=== PATIENT | male | born 1950 | race Caucasian/White ===

== ENCOUNTER 2020-07-31 03:52 | Inpatient (IN) | payer MEDICARE, OTHER ==
[~2020-07-31 03:52] MED LIST: 3IN1 COMMODE; AMIODARONE HCL200 MG PO; ANTIVERT25 MG PO; ASPIRIN CHEWABL81 MG PO; BENADRYL25 MG PO; COREG25 MG PO; COUMADIN2.5 MG PO; DICYCLOMINE 10M10 MG PO; GLUCOPHAGE1000 MG PO; GLUCOTROL10 MG PO; ISOSORBIDE MON120 MG PO; LANTUS **100 UNITS/ SC; LASIX40 MG PO; LEVAQUIN500 MG PO; LIPITOR80 MG PO; METRONIDAZOLE500 MG PO; PRILOSEC20 MG PO; RANEXA500 MG PO; SYNTHROID75 MCG PO; VICODIN 10/3251 EACH PO; WARFARIN SODIUM5 MG PO; ZESTRIL40 MG PO
[2020-07-31 04:37] LABS: BASOPHIL 0.1 % (0-2); HCT 28.3 % (42.0-52.0); HGB 7.7 g/dl (13.2-18.0); LYMPHOCYTE 18.5 % (15-48); MCH 19.4 pg (25.0-31.0); MCHC 27.2 g/dL (32.0-36.0); MCV 71.5 fL (78.0-100.0); MONOCYTE 8.1 % (0-12); MPV 9.3 fL (6.0-9.5); NEUTROPHIL 70.7 % (41-80); NRBC 0.3; PLT 275 K/uL (150-400); RBC 3.96 M/uL (4.70-6.00); RDW 18.5 % (11.5-14.0); WBC 10.8 K/uL (4.0-10.5)
[2020-07-31 04:41] LABS: INR 1.6 (0.9-1.2); PROTHROMBIN TIME 18.1 SECONDS (11.4-13.6)
[2020-07-31 04:42] LABS: PTT 35.3 SECONDS (22.2-34.7)
[2020-07-31 04:49] LABS: ALBUMIN 3.6 g/dL (3.4-5.0); BILIRUBIN - TOTAL 0.4 mg/dL (0.2-1.0); CREATININE 1.35 mg/dL (0.67-1.17); GLOBULIN (CALCULATION) 3.7 g/dL; TOTAL PROTEIN 7.3 g/dL (6.4-8.2)
[2020-07-31 04:52] LABS: POTASSIUM 5.2 mmol/L (3.5-5.1)
[2020-07-31 05:41] LABS: IRON % SATURATION 5.9 %SAT (20-50)
[2020-07-31 05:43] LABS: RETICULOCYTE COUNT 3.1 % (1.0-2.0)
[2020-07-31] MEDS ORDERED: ALOGLIPTIN25 MG PO (12:32)
[2020-07-31] MEDS ORDERED: ASPIRIN EC81 MG PO (12:33)
[2020-07-31] MEDS ORDERED: AMIODARONE HCL200 MG PO (12:33)
[2020-07-31] MEDS ORDERED: LIPITOR40 MG PO (12:33)
[2020-07-31] MEDS ORDERED: CARVEDILOL 25MG25 MG PO (12:34)
[2020-07-31] MEDS ORDERED: BENTYL10 MG PO (12:34)
[2020-07-31] MEDS ORDERED: JARDIANCE25 MG PO (12:35)
[2020-07-31] MEDS ORDERED: LASIX40 MG PO (12:35)
[2020-07-31] MEDS ORDERED: VICODIN 10/3251 EACH PO (12:36)
[2020-07-31] MEDS ORDERED: GLUCOTROL10 MG PO (12:36)
[2020-07-31] MEDS ORDERED: NOVOLOG VI100 UNIT/1 SC (12:38)
[2020-07-31] MEDS ORDERED: ISOSORBIDE MONO60 MG PO (12:39)
[2020-07-31] MEDS ORDERED: BASAGLAR K100 UNIT/1 SC (12:39)
[2020-07-31] MEDS ORDERED: SYNTHROID75 MCG PO (12:40)
[2020-07-31] MEDS ORDERED: LIDOCAINE 5% P1 EACH TOP (12:41)
[2020-07-31] MEDS ORDERED: PRINIVIL20 MG PO (12:41)
[2020-07-31] MEDS ORDERED: OMEPRAZOLE 20MG20 MG PO (12:42)
[2020-07-31] MEDS ORDERED: METFORMIN HCL500 MG PO (12:42)
[2020-07-31] MEDS ORDERED: XARELTO10 MG PO (12:43)
[2020-07-31] MEDS ORDERED: SPIRIVA RESPIMAT4 G1 INH (12:44)
--- NOTE | 2020-07-31 13:12 | NUR ---
PT BEING SENT TO [facility] LUNG ROOM 805 FOR DEBIBRALATOR. PT HAS 20 RAC, MONITOR ON. REPORT GIVEN TO SHILO AT 1100. 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 PT LEFT AT 100 PM.
== END 2020-07-31 13:13 | disposition other institution (70) | DRG 309 ==
LOC: FER 03:52 → FTCU 06:41
PROVIDERS: Emergency Medicine; ADMIT Internal Medicine
DX: T82.191A Other mechanical complication of cardiac pulse generator (battery), initial encounter (principal); I50.22 Chronic systolic (congestive) heart failure; I48.20 Chronic atrial fibrillation, unspecified; I25.119 Atherosclerotic heart disease of native coronary artery with unspecified angina pectoris; D50.9 Iron deficiency anemia, unspecified; E11.42 Type 2 diabetes mellitus with diabetic polyneuropathy; Z20.822 Contact with and (suspected) exposure to COVID-19; G47.33 Obstructive sleep apnea (adult) (pediatric); K21.9 Gastro-esophageal reflux disease without esophagitis; I48.0 Paroxysmal atrial fibrillation; E66.01 Morbid (severe) obesity due to excess calories; K57.90 Diverticulosis of intestine, part unspecified, without perforation or abscess without bleeding; E78.5 Hyperlipidemia, unspecified; M51.36 Other intervertebral disc degeneration, lumbar region; J44.9 Chronic obstructive pulmonary disease, unspecified; I45.10 Unspecified right bundle-branch block; I25.5 Ischemic cardiomyopathy; R55 Syncope and collapse; K64.9 Unspecified hemorrhoids; Z95.810 Presence of automatic (implantable) cardiac defibrillator; Z79.4 Long term (current) use of insulin; Z79.899 Other long term (current) drug therapy; I25.2 Old myocardial infarction; Z95.5 Presence of coronary angioplasty implant and graft; Z79.01 Long term (current) use of anticoagulants; Z90.49 Acquired absence of other specified parts of digestive tract; Z87.891 Personal history of nicotine dependence
CPT/HCPCS: 36415; 71045; 80053; 83540; 83550; 84484; 85025; 85610; 85730; 93005; 94010

== ENCOUNTER 2020-10-14 06:05 | Emergency (ER) | payer MEDICARE ==
[~2020-10-14 06:05] MED LIST changes: +ALOGLIPTIN25 MG PO; +ASPIRIN EC81 MG PO; +BASAGLAR K100 UNIT/1 SC; +BENTYL10 MG PO; +CARVEDILOL 25MG25 MG PO; +ISOSORBIDE MONO60 MG PO; +JARDIANCE25 MG PO; +LIDOCAINE 5% P1 EACH TOP; +LIPITOR40 MG PO; +METFORMIN HCL500 MG PO; +NOVOLOG VI100 UNIT/1 SC; +OMEPRAZOLE 20MG20 MG PO; +PRINIVIL20 MG PO; +SPIRIVA RESPIMAT4 G1 INH; +XARELTO10 MG PO
[2020-10-14 06:40] LABS: BASOPHIL 0.2 % (0-2); EOSINOPHIL 2.1 % (0-7); HCT 27.3 % (42.0-52.0); HGB 7.4 g/dl (13.2-18.0); LYMPHOCYTE 13.4 % (15-48); MCH 18.5 pg (25.0-31.0); MCHC 27.1 g/dL (32.0-36.0); MCV 68.3 fL (78.0-100.0); MONOCYTE 6.7 % (0-12); MPV 8.6 fL (6.0-9.5); NEUTROPHIL 76.8 % (41-80); NRBC 0; PLT 301 K/uL (150-400); RDW 19.7 % (11.5-14.0); WBC 10.2 K/uL (4.0-10.5)
[2020-10-14 06:45] LABS: INR 1.72 (0.9-1.2); PROTHROMBIN TIME 19.2 SECONDS (11.4-13.6)
[2020-10-14 06:59] LABS: LACTIC ACID 2.1 mmol/L (0.4-1.9)
[2020-10-14 07:05] LABS: PRO-BNP 282 pg/mL (<125)
[2020-10-14 07:07] LABS: ALBUMIN 3.6 g/dL (3.4-5.0); BILIRUBIN - TOTAL 0.3 mg/dL (0.2-1.0); BUN/CREAT RATIO (CALC) 16.7 RATIO; CREATININE 1.14 mg/dL (0.67-1.17); GLOBULIN (CALCULATION) 3.5 g/dL; POTASSIUM 4.6 mmol/L (3.5-5.1); TOTAL PROTEIN 7.1 g/dL (6.4-8.2)
[2020-10-14 08:44] LABS: IRON % SATURATION 3.5 %SAT (20-50)
[2020-10-14] MEDS ORDERED: FEOSOL325 M1 PO (10:36)
== END 2020-10-14 12:49 | disposition home or self-care (01) ==
LOC: FER 06:05
PROVIDERS: Emergency Medicine
DX: R07.89 Other chest pain (principal); D50.9 Iron deficiency anemia, unspecified; I25.10 Atherosclerotic heart disease of native coronary artery without angina pectoris; I50.9 Heart failure, unspecified; E66.01 Morbid (severe) obesity due to excess calories; Z87.891 Personal history of nicotine dependence; Z95.810 Presence of automatic (implantable) cardiac defibrillator
CPT/HCPCS: 36415; 71045; 80053; 82150; 83540; 83550; 83605; 83690; 83880; 84484; 85025; 85610; 93005

== ENCOUNTER 2020-12-02 10:03 | Emergency (ER) | payer MEDICARE ==
[~2020-12-02 10:03] MED LIST changes: +FEOSOL325 M1 PO
[2020-12-02] MEDS ORDERED: CEPHALEXIN500 M1 PO (13:54)
== END 2020-12-02 14:16 | disposition home or self-care (01) ==
LOC: FER 10:03
DX: L02.214 Cutaneous abscess of groin (principal); I10 Essential (primary) hypertension; E11.9 Type 2 diabetes mellitus without complications
CPT/HCPCS: 87070; 87077; 87205; J2001

== ENCOUNTER 2021-02-23 09:12 | Emergency (ER) | payer MEDICARE, OTHER ==
[~2021-02-23] VITALS: Ht 182.9 cm; Wt 151.5 kg
[~2021-02-23 09:12] MED LIST changes: +CEPHALEXIN500 M1 PO
[2021-02-23 09:47] LABS: BASOPHIL 0.4 % (0-2); HCT 45.3 % (42.0-52.0); LYMPHOCYTE 16.6 % (15-48); MCH 26.1 pg (25.0-31.0); MCHC 30.9 g/dL (32.0-36.0); MCV 84.5 fL (78.0-100.0); MONOCYTE 6.1 % (0-12); MPV 9.8 fL (6.0-9.5); NEUTROPHIL 72.7 % (41-80); NRBC 0; PLT 196 K/uL (150-400); RBC 5.36 M/uL (4.70-6.00); RDW 16.4 % (11.5-14.0); WBC 9.1 K/uL (4.0-10.5)
[2021-02-23 09:57] LABS: ALBUMIN 3.5 g/dL (3.4-5.0); BILIRUBIN - TOTAL 0.2 mg/dL (0.2-1.0); BUN/CREAT RATIO (CALC) 22.1 RATIO; CREATININE 1.04 mg/dL (0.67-1.17); GLOBULIN (CALCULATION) 3.5 g/dL; POTASSIUM 4.5 mmol/L (3.5-5.1)
[2021-02-23 10:10] LABS: BILIRUBIN NEGATIVE (NEGATIVE); BLOOD NEGATIVE Ery/uL (NEGATIVE); CLARITY CLEAR (CLEAR); COLOR YELLOW (YELLOW); GLUCOSE (U) 3+ mg/dL (NORMAL); LEUKOCYTES NEGATIVE Leu/uL (NEGATIVE); NITRITE NEGATIVE (NEGATIVE); PROTEIN NEGATIVE (NEGATIVE); UROBILINOGEN 0.2 mg/dL (0.2-1.0)
== END 2021-02-23 14:28 | disposition home or self-care (01) ==
LOC: FER 09:12
PROVIDERS: Emergency Medicine
DX: R42 Dizziness and giddiness (principal); I48.91 Unspecified atrial fibrillation; E11.9 Type 2 diabetes mellitus without complications; I10 Essential (primary) hypertension; I25.2 Old myocardial infarction; J44.9 Chronic obstructive pulmonary disease, unspecified; E66.9 Obesity, unspecified; Z87.891 Personal history of nicotine dependence
CPT/HCPCS: 36415; 70450; 71045; 80053; 81003; 84484; 85025; 93005

== ENCOUNTER 2021-08-07 15:54 | Emergency (ER) | payer MEDICARE, OTHER ==
[2021-08-07 16:36] LABS: BASOPHIL 0.6 % (0-2); EOSINOPHIL 2.5 % (0-7); HCT 50.4 % (42.0-52.0); HGB 16.4 g/dl (13.2-18.0); LYMPHOCYTE 17.8 % (15-48); MCH 29.8 pg (25.0-31.0); MCHC 32.5 g/dL (32.0-36.0); MCV 91.6 fL (78.0-100.0); MONOCYTE 7.7 % (0-12); MPV 10.6 fL (6.0-9.5); NEUTROPHIL 70.2 % (41-80); NRBC 0; PLT 202 K/uL (150-400); RDW 14.4 % (11.5-14.0); WBC 10.2 K/uL (4.0-10.5)
[2021-08-07 17:31] LABS: ALBUMIN 3.8 g/dL (3.4-5.0); BILIRUBIN - TOTAL 0.3 mg/dL (0.2-1.0); BUN/CREAT RATIO (CALC) 23.4 RATIO; CREATININE 1.28 mg/dL (0.67-1.17); FT4 (FREE T4) 1.2 ng/dL (0.76-1.46); GLOBULIN (CALCULATION) 4.2 g/dL; MAGNESIUM 1.9 mg/dL (1.8-2.4); POTASSIUM 4.6 mmol/L (3.5-5.1)
== END 2021-08-07 20:00 | disposition other institution (70) ==
LOC: FER 15:54
PROVIDERS: Emergency Medicine
DX: I47.2 Ventricular tachycardia (principal)
CPT/HCPCS: 36415; 71045; 80053; 82550; 83735; 83880; 84439; 84443; 84484; 85025; 93005; J0282; J2405; J3475; J7050

== ENCOUNTER 2021-08-17 17:57 | Emergency (ER) | payer MEDICARE, OTHER ==
[2021-08-17 18:16] LABS: BASOPHIL 0.6 % (0-2); EOSINOPHIL 9.5 % (0-7); HCT 47.3 % (42.0-52.0); HGB 15.5 g/dl (13.2-18.0); LYMPHOCYTE 16.3 % (15-48); MCHC 32.8 g/dL (32.0-36.0); MCV 91.5 fL (78.0-100.0); MONOCYTE 6.9 % (0-12); MPV 9.7 fL (6.0-9.5); NEUTROPHIL 64.7 % (41-80); NRBC 0.2; PLT 183 K/uL (150-400); RBC 5.17 M/uL (4.70-6.00); RDW 14.7 % (11.5-14.0); WBC 11.5 K/uL (4.0-10.5)
[2021-08-17 18:28] LABS: INR 1.26 (0.9-1.2); PROTHROMBIN TIME 15.1 SECONDS (11.8-13.4); PTT 28.1 SECONDS (24.4-34.7)
[2021-08-17 18:44] LABS: ALBUMIN 3.3 g/dL (3.4-5.0); BILIRUBIN - TOTAL 0.3 mg/dL (0.2-1.0); BUN/CREAT RATIO (CALC) 30.1 RATIO; CREATININE 1.33 mg/dL (0.67-1.17); FT4 (FREE T4) 1.2 ng/dL (0.76-1.46); GLOBULIN (CALCULATION) 4.3 g/dL; MAGNESIUM 1.8 mg/dL (1.8-2.4); POTASSIUM 4.1 mmol/L (3.5-5.1); TOTAL PROTEIN 7.6 g/dL (6.4-8.2)
== END 2021-08-18 08:50 | disposition other institution (70) ==
LOC: FER 17:57
PROVIDERS: Emergency Medicine
DX: I47.2 Ventricular tachycardia (principal); I25.10 Atherosclerotic heart disease of native coronary artery without angina pectoris
CPT/HCPCS: 36415; 71045; 80053; 83735; 83880; 84439; 84443; 84484; 85025; 85610; 85730; 93005; J0282; J2270; J2405; J3010; J3475; J7030; J7050; J7060

== ENCOUNTER 2021-10-04 00:54 | Emergency (ER) | payer MEDICARE, OTHER | END 2021-10-04 05:21 | disposition home or self-care (01) | LOC: FER 00:54 | DX: S92.411A Displaced fracture of proximal phalanx of right great toe, initial encounter for closed fracture (principal); E11.9 Type 2 diabetes mellitus without complications; Z87.891 Personal history of nicotine dependence; W19.XXXA Unspecified fall, initial encounter; Y92.009 Unspecified place in unspecified non-institutional (private) residence as the place of occurrence of the external cause | CPT/HCPCS: 73630 ==